=== PATIENT | male | born 1975 | race Caucasian/White ===

== ENCOUNTER 2017-03-08 01:43 | Emergency (ER) | payer OTHER ==
[~2017-03-08] VITALS: Ht 175.3 cm; Wt 58.1 kg
[~2017-03-08 01:43] MED LIST: AZITHROMYCIN250 MG1 PO; LEVOTHROID,S0.075 MG PO; LEVOTHYROXINE75 MCG PO; PERCOCET 5/31 TABLET PO; SYNTHROID75 MCG PO; TESSALON PERLE100 MG PO; ZITHROMAX Z-PA250 MG PO; [UNRECOGNIZED DRUG - OTHER]
[2017-03-08 02:25] VITALS: BP 126/87
== END 2017-03-08 02:26 | disposition home or self-care (01) ==
LOC: EME 01:43
DX: Z02.89 Encounter for other administrative examinations (principal); G89.29 Other chronic pain; M79.606 Pain in leg, unspecified; F17.200 Nicotine dependence, unspecified, uncomplicated
CPT/HCPCS: 99281; 99283